=== PATIENT | male | born 1955 | race Caucasian/White ===

== ENCOUNTER 2024-05-08 09:19 | Outpatient (CLI) | payer OTHER | END 2024-05-08 09:20 | disposition home or self-care (01) | LOC: CSHSLEEP 09:19 | PROVIDERS: ATTEND Nurse Practitioner Gerontology | DX: G47.9 Sleep disorder, unspecified (principal); R53.83 Other fatigue; G47.00 Insomnia, unspecified; F41.9 Anxiety disorder, unspecified; I10 Essential (primary) hypertension; G47.33 Obstructive sleep apnea (adult) (pediatric); R25.8 Other abnormal involuntary movements | CPT/HCPCS: 95810 ==